=== PATIENT | female | born 1970 | race Caucasian/White ===

== ENCOUNTER 2024-05-23 14:12 | Emergency (ER) | payer MEDICAID, SELFPAY ==
--- NOTE | 2024-05-23 14:16 | ED_ITS ---
HPI - General Adult General Time Seen by Provider: 14:16 Date Seen: 05/23/24 Chief complaint: Abdominal Pain Stated complaint: stomach pain Time Seen by Provider: 05/23/24 14:15 Source: patient, RN notes reviewed and old records reviewed Mode of arrival: ambulatory Limitations: no limitations History of Present Illness HPI narrative: 53-year-old female who presents today with abdominal pain. Patient notes 2 days of upper abdominal pain starting after Thanksgiving, predominantly in the epigastrium and left upper quadrant but does radiate into the left back. No nausea, vomiting. No diarrhea, did take a laxative with some mild improvement in symptoms. No urinary symptoms. No ill contacts. No prior surgeries. Denies alcohol use. Related Data Previous Rx's ?Medication ?Instructions ?Recorded sucralfate 1 gram tablet (Carafate) 1 g PO BID #10 tabs 05/23/24 Allergies Allergy/AdvReac Type Severity Reaction Status Date / Time No Known Drug Allergies Allergy Verified 05/23/24 14:23 Exam Narrative: Exam Narrative: General: Well-developed and well-nourished, no acute distress Head: Atraumatic and normocephalic Eyes: Pupils are equal reactive, extraocular motions intact, conjunctiva clear ENT: External nose and ears are normal, posterior pharynx without erythema or exudate Neck: No midline cervical tenderness, full spontaneous range of motion the neck, trachea midline, no adenopathy Heart: Regular rate and rhythm no murmurs or thrills Lungs: Clear to auscultation bilaterally without wheezes or crackles Abdomen: Soft, nontender, nondistended with active bowel sounds Musculoskeletal: No tenderness, deformity, or edema Neurologic: Awake, alert, and oriented x3, no gross focal neurologic deficits, cranial nerves intact as tested Psych: Mood and affect are appropriate Skin: No rashes Const: Vital Signs, click to edit/add: Vital Signs - 24 hr 05/23/24 14:23 Temperature 98.4 F Pulse Rate [Pulse Oximeter] 95 Respiratory Rate 18 Blood Pressure [Ri ght Upper Arm] 158/79 H Pulse Oximetry 95 Oxygen Delivery Me thod Room Air Course Course ED Course: Patient seen and examined, no prior records available in [facility] nor [facility] systems. Patient presents with upper abdominal pain for the last 2 days, predominantly on the left side and radiating to the left back. No injuries. No vomiting or diarrhea. On exam here, patient's vital is stable, no reproducible epigastric, right upper quadrant, left upper quadrant, or lower abdominal tenderness. Consider pancreatitis although no tenderness, also consider acute cholecystitis although pain is consistently on the left and not on the right, the renal pathology possible blood clinically little less likely. Symptoms are most consistent with gastritis or possibly mild colitis of the splenic flexure. Labs ordered and consider CT abdomen pelvis depending on lab results, would not do this initially as patient has no tenderness. No chest pain, dyspnea, cough, or pleuritic pain to suggest pulmonary embolism, no indication for D-dimer CT PE study at this time Reevaluation(s) Time of Reevaluation #1: 15:16 Reevaluation #1: Urinalysis independently interpreted by me with evidence of hematuria but no evidence for infection, no squamous cells. Hepatic panel is normal, lipase is normal, white blood cell count is normal. CT scan ordered to evaluate for possible kidney stone causing hematuria, abdominal pain flank pain. If this is negative, continue symptom management. Time of Reevaluation #2: 15:46 Reevaluation #2: Patient recheck, she notes that she is on her menstrual cycle now. CT of the abdomen and pelvis independently interpreted by me negative for acute findings including kidney stone. Patient is stable for discharge. Vital Signs Vital signs: Initial Vital Signs Temperature 98.4 F 05/23/24 14:23 Temperature Source Temporal Artery Scan 05/23/24 14:23 Pulse Rate 95 05/23/24 14:23 Respiratory Rate 18 05/23/24 14:23 Blood Pressure 158/79 H 05/23/24 14:23 Blood Pressure Mean 105 05/23/24 14:23 Pulse Oximetry 95 05/23/24 14:23 Oxygen Delivery Method Room Air 05/23/24 14:23 Vital Signs Temperature 98.4 F 05/23/24 14:23 Pulse Rate 95 05/23/24 14:23 Respiratory Rate 18 05/23/24 14:23 Blood Pressure 158/79 H 05/23/24 14:23 Pulse Oximetry 95 05/23/24 14:23 Oxygen Delivery Method Room Air 05/23/24 14:23 Temperature 98.4 F 05/23/24 14:23 Pulse Rate 95 05/23/24 14:23 Respiratory Rate 18 05/23/24 14:23 Blood Pressure 158/79 H 11/30/24 14:23 Pulse Oximetry 95 05/23/24 14:23 Oxygen Delivery Method Room Air 05/23/24 14:23 Medications Administered Medications: Discontinued Medications Generic Name Dose Route Start Last Admin Trade Name Mustaphaq PRN Reason Stop Dose Admin Famotidine 20 mg 05/23/24 14:36 05/23/24 14:54 Famotidine 10 Mg/Ml Inj IVP 05/23/24 14:37 20 mg ONCE ONE Administration Lidocaine/Aluminum/Magnesium/Simeth 30 ml 05/23/24 14:36 05/23/24 14:54 Mag Hydrox/Aluminum Hyd/Simeth 30 Ml Oral.Susp PO 05/23/24 14:37 30 ml ONCE ONE Administration Medical Decision Making Lab Data Labs: Lab Results 05/23/24 05/23/24 Range/Units 14:49 14:56 WBC 10.76 (4.50-11.00) K/uL RBC 4.49 (4.00-5.20) m/uL Hgb 12.7 (12.0-16.0) gm/dL Hct 38.5 (33.0-51.0) % MCV 86 (80-100) fL MCH 28 (26-34) pg MCHC 33 (32-36) gm/dL RDW Coeff of Alphonso 13.7 (11.5-15.5) % Plt Count 255 (140-440) K/uL Neut % (Auto) 70.8 (42.0-72.0) % Lymph % (Auto) 21.3 (20-44) % [place]ney % (Auto) 6.1 (0.0-11.0) % Eos % (Auto) 1.0 (0.0-7.0) % Baso % (Auto) 0.6 (0.0-3.0) % Neut # (Auto) 7.62 H (1.7-7.0) K/uL Lymph # (Auto) 2.29 (0.90-2.90) K/uL Harney # (Auto) 0.70 (0.00-0.90) K/UL Eos # (Auto) 0.11 (0.00-0.50) K/uL Baso # (Auto) 0.06 (0.00-0.30) K/uL Abs Immat Gran (auto) 0.02 (0.00-0.30) K/uL Imm/Tot Granulo (auto) 0.2 % Sodium 138 (135-149) mmol/L Potassium 3.9 (3.6-5.1) mmol/L Chloride 103 (96-114) mmol/L Carbon Dioxide 25 (20-32) mmol/L Anion Gap 10 (7-15) mEq/L BUN 12 (7-30) mg/dL Creatinine 0.6 (0.5-1.5) mg/dL Estimated Creat Clear 90.73 Estimated GFR 108 ml/min Glucose 133 H (60-115) mg/dL Calcium 9.8 (8.4-10.6) mg/dL Total Bilirubin 0.4 (0.1-1.5) mg/dL Direct Bilirubin 0.1 (0.0-0.5) mg/dL AST 19 (12-35) U/L ALT 22 (4-35) U/L Alkaline Phosphatase 94 (40-150) U/L Total Protein 7.7 (6.0-8.3) g/dL Albumin 4.5 (3.3-5.0) g/dL Lipase 132 (23-300) U/L Urine Color Yellow (Yellow) Urine Appearance Clear (Clear) Urine pH 5.5 (5.0-8.5) Ur Specific [place] 1.010 (1.000-1.030) Urine Protein Negative (Negative) Urine Glucose (UA) Negative (Negative) Urine Ketones Negative (Negative) Urine Blood 3+ A (Negative) Urine Nitrite Negative (Negative) Urine Bilirubin Negative (Negative) Urine Urobilinogen 0.2 (0.2-1.0) Ur Leukocyte Esterase Negative (Negative) Urine RBC 2-5 A (0-2) Urine WBC 0-2 (0-5) Ur Squamous Epith Cells None (None-Few) Urine Bacteria None (None) Discharge Plan Discharge Clinical Impression: Abdominal pain, LUQ, Gastritis, Hypertension Patient Disposition: Home, Self-Care Condition: Stable Instructions: Gastritis (ED), Abdominal Pain (ED), Hypertension (ED) Additional Instructions: Carafate as prescribed Avoid caffeine, alcohol, and carbonated beverage Call the clinic to establish care and for follow-up of your high blood pressure [facility] [address], [place] [address] Activity Level: No Restrictions Prescriptions: New sucralfate [Carafate] 1 gram tablet 1 g PO BID Qty: 10 0RF Follow Up/Referrals: Provider,Not a Local [Primary Care Provider] - Stand Alone Forms: [employer] Info Instructions
[2024-05-23 14:23] VITALS: BP 158/79; PULSE 95; RESP 18; TEMP 36.9; O2SAT 95; BMI 46.7
[2024-05-23] MEDS: FAMOTIDINE 10 MG/ML inj 20 MG IVP (14:54)
[2024-05-23] MEDS: MAG HYDROX/ALUMINUM HYD/SIMETH 30 ML ORAL.SUSP PO (14:54)
[2024-05-23 15:00] LABS: Appearance Urine Clear (Clear); Bilirubin Urine Negative (Negative); Blood Urine 3+ (Negative); Color Urine Yellow (Yellow); Glucose Urine Negative (Negative); Ketones Urine Negative (Negative); Leukocyte Esterase Urine Negative (Negative); Nitrite Urine Negative (Negative); Protein Urine Negative (Negative); Urobilinogen Urine 0.2 (0.2-1.0); pH Urine 5.5 (5.0-8.5)
[2024-05-23 15:07] LABS: Albumin* 4.5 g/dL (3.3-5.0)
[2024-05-23 15:08] LABS: Basophils Absolute Auto 0.06 K/uL (0.00-0.30); Basophils Percent Auto 0.6 % (0.0-3.0); Chloride* 103 mmol/L (96-114); Eosinophils Absolute Auto 0.11 K/uL (0.00-0.50); Hematocrit 38.5 % (33.0-51.0); Hemoglobin* 12.7 gm/dL (12.0-16.0); Immature Granulocytes Abs Auto 0.02 K/uL (0.00-0.30); Immature Granulocytes Pct Auto 0.2 %; Lymphocytes Absolute Auto 2.29 K/uL (0.90-2.90); Lymphocytes Percent Auto 21.3 % (20-44); Mean Corpuscular HGB Conc 33 gm/dL (32-36); Mean Corpuscular Hemoglobin 28 pg (26-34); Mean Corpuscular Volume 86 fL (80-100); Monocytes Percent Auto 6.1 % (0.0-11.0); Neutrophils Absolute Auto 7.62 K/uL (1.7-7.0); Neutrophils Percent Auto 70.8 % (42.0-72.0); Platelet Count* 255 K/uL (140-440); Potassium* 3.9 mmol/L (3.6-5.1); RDW Coefficient of Variation % 13.7 % (11.5-15.5); Red Blood Count 4.49 m/uL (4.00-5.20); Sodium* 138 mmol/L (135-149); White Blood Count* 10.76 K/uL (4.50-11.00)
[2024-05-23 15:09] LABS: WBC Urine 0-2 (0-5)
[2024-05-23 15:10] LABS: Anion Gap 10 mEq/L (7-15); Bilirubin Direct* 0.1 mg/dL (0.0-0.5); Bilirubin Total* 0.4 mg/dL (0.1-1.5); Carbon Dioxide* 25 mmol/L (20-32); Creatinine* 0.6 mg/dL (0.5-1.5); Est. Creatinine Clearance* 90.73; Estimated Glomerular Filt Rate 108 ml/min; Slide Review Reflex No; Total Protein* 7.7 g/dL (6.0-8.3)
[2024-05-23 15:11] LABS: Alanine Aminotransferase* 22 U/L (4-35); Alkaline Phosphatase* 94 U/L (40-150); Aspartate Amino Transferase* 19 U/L (12-35); Blood Urea Nitrogen* 12 mg/dL (7-30); Calcium* 9.8 mg/dL (8.4-10.6); Glucose* 133 mg/dL (60-115); Lipase* 132 U/L (23-300)
--- NOTE | 2024-05-23 15:16 | CRLHL7_ITS ---
For Patients: As a result of the Century Cures Act, medical imaging exams and procedure reports are released immediately into your electronic medical record. You may view this report before your referring provider. If you have questions, please contact your health care provider. INDICATION: Left flank/abdominal flank pain. Hematuria. TECHNIQUE: Axial noncontrast CT cuts were performed from above diaphragm to below the ischial tuberosities. COMPARISON: None. FINDINGS: There is a cluster of small pelvic phleboliths on the left. There are no convincing renal, ureteral or bladder calculi. There is no hydronephrosis. 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 The may be a fibroid at the uterine fundus. There is moderate fatty infiltration of the liver. The spleen, pancreas and adrenal glands appear normal. The colon and small bowel appear normal. The appendix is not inflamed. There is no free intraperitoneal air or fluid. There are no enlarged retroperitoneal, mesenteric, iliac or inguinal lymph nodes. There are no lytic or sclerotic skeletal lesions. There are no nodules or masses at the lung bases. IMPRESSION: 1. Negative for urinary tract calculi. 2. Moderate diffuse fatty infiltration of the liver. Please note that all CT scans at this facility use dose modulation, iterative reconstruction, and/or weight-based dosing when appropriate to reduce radiation dose to as low as reasonably achievable. Dictated by Josh Sainz MD @ 05/23/2024 4:17:59 PM (Electronically Signed)
== END 2024-05-23 16:00 | disposition home or self-care (01) ==
PROVIDERS: Emergency Provider Family Medicine
DX: R10.12 Left upper quadrant pain (principal); K29.70 Gastritis, unspecified, without bleeding; I10 Essential (primary) hypertension
CPT/HCPCS: 36415; 74176; 80048; 80076; 81001; 83690; 85025; 96374; 99284; A9270; S0028

== ENCOUNTER 2024-07-07 14:39 | Outpatient (CLI) | payer MEDICAID, SELFPAY | END 2024-07-07 14:40 | disposition home or self-care (01) | PROVIDERS: Visit Provider Family Medicine | DX: I10 Essential (primary) hypertension (principal); K76.0 Fatty (change of) liver, not elsewhere classified; Z13.220 Encounter for screening for lipoid disorders; Z13.29 Encounter for screening for other suspected endocrine disorder | CPT/HCPCS: 80053; 80061; 84443 ==

== ENCOUNTER 2024-08-04 13:04 | Outpatient (CLI) | payer MEDICAID, SELFPAY ==
[2024-08-06 17:59] LABS: HPV Source Cervical/Vag; HPV, High Risk by TMA Not Detected
== END 2024-08-04 13:05 | disposition home or self-care (01) ==
PROVIDERS: PCP Family Medicine; Visit Provider Family Medicine
DX: E78.5 Hyperlipidemia, unspecified (principal); Z12.4 Encounter for screening for malignant neoplasm of cervix; Z87.42 Personal history of other diseases of the female genital tract
CPT/HCPCS: 80061; 87624; 87625; 88141; 88142

== ENCOUNTER 2024-09-07 07:42 | Outpatient (CLI) | payer MEDICAID, SELFPAY ==
--- NOTE | 2024-09-07 08:08 | P.ANES_ITS ---
Anesthesia Charges Start Date/Time Anesthesia Start Date: 09/07/24 Anesthesia Start Time: 08:22 Stop Date/Time Anesthesia Stop Date: 09/07/24 Anesthesia Stop Time: 08:50 Coding CPT Codes CPT Codes: ANES LWR INTST SCR COLSC - 13453 ([id number]) P3 - PATIENT W/SEVERE SYS DISEASE, QK - PRODUCT DEVELOPMENT COORDINATOR 2-4 CNCRNT ANES PROC, QX - AIRBRUSH PAINTER SVC W/ MD MED DIRECTION
--- NOTE | 2024-09-07 08:08 | W.ANESCHARGE ---
Anesthesia Charges Start Date/Time Anesthesia Start Date: 09/07/24 Anesthesia Start Time: 08:22 Stop Date/Time Anesthesia Stop Date: 09/07/24 Anesthesia Stop Time: 08:50 Coding CPT Codes CPT Codes: ANES LWR INTST SCR COLSC - 13033 ([id number]) P3 - PATIENT W/SEVERE SYS DISEASE, QK - FINANCIAL REPORTING CONSULTANT 2-4 CNCRNT ANES PROC, QX - BEAMING INSPECTOR SVC W/ MD MED DIRECTION
--- NOTE | 2024-09-07 09:28 | P.ANES_ITS ---
Anesthesia Charges Start Date/Time Anesthesia Start Date: 09/07/24 Anesthesia Start Time: 08:22 Stop Date/Time Anesthesia Stop Date: 09/07/24 Anesthesia Stop Time: 08:50 Coding CPT Codes CPT Codes: ANES LWR INTST SCR COLSC - 16746 ([id number]) QK - HEEL BLACKER 2-4 CNCRNT ANES PROC, QX - TECHNICAL INSTRUCTOR SVC W/ MED DIRECTION, P3 - PATIENT W/SEVERE SYS DISEASE
--- NOTE | 2024-09-07 09:28 | W.ANESCHARGE ---
Anesthesia Charges Start Date/Time Anesthesia Start Date: 09/07/24 Anesthesia Start Time: 08:22 Stop Date/Time Anesthesia Stop Date: 09/07/24 Anesthesia Stop Time: 08:50 Coding CPT Codes CPT Codes: ANES LWR INTST SCR COLSC - 14531 ([id number]) QK - TREE TRIMMING LINE TECHNICIAN 2-4 CNCRNT ANES PROC, QX - ALUMNI RELATIONS MANAGER SVC W/ MED DIRECTION, P3 - PATIENT W/SEVERE SYS DISEASE
== END 2024-09-07 07:43 | disposition home or self-care (01) ==
PROVIDERS: PCP Family Medicine; Visit Provider Internal Medicine
DX: Z12.11 Encounter for screening for malignant neoplasm of colon (principal); Z86.0100 Personal history of colon polyps, unspecified
CPT/HCPCS: 00812; 45378; J2704